=== PATIENT | male | born 1965 | race Caucasian/White ===

== ENCOUNTER 2022-12-09 18:57 | Emergency (ER) | payer OTHER, SELFPAY ==
--- NOTE | 2022-12-09 19:05 | ED.SKABFB ---
HPI - Skin/Abscess/Foreign Bdy General Chief complaint: Skin/Abscess/Foreign Body Stated complaint: rash on back Source: patient and RN notes reviewed History of Present Illness HPI narrative: 57-year-old male presents to urgent care with complaints of an itchy rash to his right mid back and right flank area. Patient states he received a lithotripsy this past weekend on the left side but noticed the right side pain earlier today. Patient's noticed the rash today. Denies any fevers, chills, or vomiting. Patient has hydrocodone at home for pain. Some parts of this dictation were generated by voice recognition software and may contain typographical and/or grammatical inaccuracies. Related Data Home Medications Medication Instructions Recorded Confirmed lisinopril 5 mg tablet 45 mg PO DAILY 12/09/22 12/09/22 omeprazole 20 mg capsule,delayed 20 mg PO DAILY 12/09/22 12/09/22 release Allergies Allergy/AdvReac Type Severity Reaction Status Date / Time No Known Allergies Allergy Unverified 12/09/22 19:08 Review of Systems Review of Systems: CONSTITUTIONAL: Denies fever, chills, or sweats. EYES: Denies visual changes, redness, or discharge. ENT: Denies otalgia and sore throat CARDIOVASCULAR: Denies chest pain, palpitations, or edema. RESPIRATORY: Denies cough or dyspnea. GASTROINTESTINAL: Denies abdominal pain, nausea, vomiting, or diarrhea. GENITOURINARY: Denies dysuria or hematuria. SKIN: Itchy rash to right mid back MUSCULOSKELETAL: right midback pain that radiates around flank NEUROLOGIC: Denies headache, numbness, or weakness. PMFSH Comments At the time of my signature, I reviewed and agree with the nursing past medical, surgical, social, and family history. There is no relevant family history pertinent to the patient complaint. Exam Narrative: GENERAL: This is a well-nourished, well-developed patient, in no apparent distress. HEAD: normocephalic, atraumatic. EYES: PERRL. Sclera clear/white. Vision is grossly intact. EARS: External ears normal, auditory canals clear and without drainage, TMs normal without perforation. Hearing grossly intact. NOSE: External nose normal with no obvious nasal discharge, nares without redness, no rhinorrhea. THROAT: Mucous membranes moist, posterior pharynx clear. NECK: Neck supple, non-tender without lymphadenopathy, masses or thyromegaly. CARDIOVASCULAR: Regular rate and rhythm without murmurs, gallops, or rubs. RESPIRATORY: Clear to auscultation. Breath sounds equal bilaterally. No wheezes, rales, or rhonchi. GASTROINTESTINAL: Abdomen soft, non-tender, nondistended. Bowel sounds are active. No hepato-splenomegaly, or palpable masses. No guarding. SKIN: erythemic blisters noted right mid back and right upper quadrant of abdomen. NEURO: awake, alert, and oriented to person, place and time. There were no obvious focal neurologic abnormalities. BACK: Nontender without deformity or crepitance. No flank tenderness. Course Course Level of Care: Express Care Visit Vital Signs Vital signs: Vital Signs Temperature 97.7 F 12/09/22 19:07 Pulse Rate 113 H 12/09/22 19:07 Respiratory Rate 16 12/09/22 19:07 Blood Pressure 136/91 H 12/09/22 19:07 Pulse Oximetry 98 12/09/22 19:07 Temperature 97.7 F 12/09/22 19:07 Pulse Rate 113 H 12/09/22 19:07 Respiratory Rate 16 12/09/22 19:07 Blood Pressure 136/91 H 12/09/22 19:07 Pulse Oximetry 98 12/09/22 19:07 Reviewed MDM - Skin/Abscess/Foreign Bdy MDM Narrative Medical decision making narrative: Take acyclovir as directed. Take the prednisone as directed. May take hydrocodone with prednisone as needed for pain. Follow up with her primary care physician within the next week. Differential Diagnosis Differential diagnosis: Likely viral exanthem, herpes zoster and cellulitis Critical Care Time Critical Care Time Critical Care Time: No Discharge Plan Discharge Clinical Impression: Herpes zo
[2022-12-09 19:07] VITALS: BP 136/91; PULSE 113; RESP 16; TEMP 36.5; O2SAT 98
== END 2022-12-09 19:18 | disposition home or self-care (01) ==
PROVIDERS: Emergency Provider Nurse Practitioner Family
DX: B02.9 Zoster without complications (principal)
CPT/HCPCS: 99213; G0463